=== PATIENT | female | born 1945 | race Caucasian/White ===

== ENCOUNTER 2022-03-09 10:36 | Emergency (ER) | payer MEDICARE, SELFPAY ==
[2022-03-09] VITALS (8 sets, daily range): BP systolic 112–140; BP diastolic 46–76; PULSE 73–91; RESP 14–23; TEMP 36.9–37.3; O2SAT 93–98; BMI 35.5
--- NOTE | 2022-03-09 10:56 | ECG_ITS ---
APPROVED REPORT Exam: Resting ECG HR:104 bpm ECG Measurements Heart Rate 104 AXES UT 186 P 79 QRSd 85 QRS 12 QT 310 T 32 QTc 371 Conclusion SINUS TACHYCARDIA WITH OCCASIONAL VENTRICULAR PREMATURE COMPLEXES WITH FREQUENT SUPRAVENTRICULAR PREMATURE COMPLEXES NONSPECIFIC T-WAVE ABNORMALITY ABNORMAL RHYTHM ECG UNCONFIRMED REPORT Electronically signed by : Lan Patel MD 03/09/2022 20:49:16
--- NOTE | 2022-03-09 11:38 | [facility].EDGENADL ---
Discharge Plan Disposition Patient Disposition: Home, Self-Care Condition: Good Prescriptions Prescriptions: New oseltamivir [Tamiflu] 6 mg/mL suspension for reconstitution 75 mg PO BID 5 Days Qty: 125 0RF cephalexin 250 mg capsule 250 mg PO Q6H 5 Days Qty: 20 0RF No Action metformin 500 mg tablet 1,000 mg PO BID atorvastatin 10 mg tablet 10 mg PO DAILY glimepiride 2 mg tablet 2 mg PO DAILY levothyroxine 100 mcg tablet 100 mcg PO DAILY amlodipine 10 mg tablet 10 mg PO DAILY doxazosin 4 mg tablet 4 mg PO DAILY diclofenac sodium 75 mg tablet,delayed release (DR/EC) 75 mg PO DAILY levocetirizine 5 mg tablet 5 mg PO DAILY ascorbic acid (vitamin C) [Vitamin C] 1,000 mg Tablet 1 g PO DAILY fexofenadine [Alyssa] 180 mg Tablet 180 mg PO DAILY aspirin [Aspir-81] 81 mg Tablet,Delayed Release (Dr/Ec) 81 mg PO DAILY ferrous sulfate 325 mg (65 mg iron) Tablet 325 mg PO DAILY esomeprazole magnesium [Nexium 24HR] 20 mg Capsule,Delayed Release(Dr/Ec) 20 mg PO DAILY cholecalciferol (vitamin D3) [Vitamin D3] 25 mcg (1,000 unit) Capsule 25 mcg PO DAILY Victoza 2-Jose 0.6 mg/0.1 mL (18 mg/3 mL) pen injector 1.2 mg SQ DAILY Centrum Silver Women 8 mg iron-400 mcg-300 mcg Tablet 1 tab PO DAILY Referrals Follow up/Referrals: Ansley Butterfield [Primary Care Provider] - See instructions Activity Restrictions/Add. Instructions Additional Instructions/Restrictions: Rest, drink plenty of fluids. Tylenol or ibuprofen for fever or pain. Tamiflu as prescribed. Cephalexin as prescribed for possible UTI. Urine culture has been performed, results generally take 2 to 3 days. Follow-up the results of this test with your primary care provider within 2 to 3 days. Follow-up with primary care provider if not improving in 4 to 5 days. Clinical Impressions Clinical Impression: Influenza A Instructions Patient Instructions: DI for Influenza -- Adult Discharge ED Provider: French Cisneros Adult HPI General Chief complaint: Weakness Stated complaint: weakness Time Seen by Provider: 03/09/22 11:41 Mode of Arrival: EMS Source of Information: Patient and EMS Limitations: No Limitations Description of Symptoms (Recalled from ER Triage Doc. by RN): per ems pt was lethargic upon arrival to home with a pal sbp 70, glucose reading 212, 500 NS given with pt back to her basline with a bp of 130/60. PT states that she has been feeling tired since yesterday. States a little girl was at her house the other day with the flu History of Present Illness HPI narrative: Brought in by ambulance. Patient states she has not felt well since Thursday, 2 days ago. States that she has a cold. She has a cough and congestion, generalized weakness, poor appetite. She feels like she has had a fever but does not have a thermometer. She had diarrhea in the emergency department, but not prior. No vomiting. Denies shortness of breath. States that this morning she was weaker than normal and therefore ambulance was called. Found to be hypotensive on arrival with resolution after IV fluid bolus. She was exposed to influenza the other day . She has not had an influenza vaccine this year. She has been immunized against COVID. She was exposed to COVID in December. Related Data Home Medications Medication Instructions Recorded Confirmed amlodipine 10 mg tablet 10 mg PO DAILY blood pressure 03/09/22 03/09/22 ascorbic acid (vitamin C) 1,000 mg 1 g PO DAILY supplement 03/09/22 03/09/22 tablet (Vitamin C) aspirin 81 mg tablet,delayed 81 mg PO DAILY heart health 03/09/22 03/09/22 release atorvastatin 10 mg tablet 10 mg PO DAILY Cholesterol 03/09/22 03/09/22 cholecalciferol (vitamin D3) 25 25 mcg PO DAILY Supplement 03/09/22 03/09/22 mcg (1,000 unit) capsule (Vitamin D3) diclofenac sodium 75 mg 75 mg PO DAILY Pain 03/09/22 03/09/22
--- NOTE | 2022-03-09 11:41 | XR_ITS ---
PROCEDURE INFORMATION: Exam: XR Chest Exam date and time: 03/09/2022 12:03 PM Age: 76 years old Clinical indication: Other: Lethargic TECHNIQUE: Imaging protocol: Radiologic exam of the chest. Views: 1 view. COMPARISON: No relevant prior studies available. FINDINGS: Lungs: Mild interstitial prominence, without acute airspace disease. Pleural spaces: No pleural effusion. Heart/Mediastinum: No cardiomegaly. Bones/joints: Degenerative change. IMPRESSION: No acute airspace or pleural disease.
[2022-03-09 11:46] LABS: Coronavirus 19, PCR Not Detected (NotDetected); Influenza B, PCR Not Detected (NotDetected)
[2022-03-09 11:48] LABS: Basophils # 0.2 K/mm3 (0-0.2); Basophils % 2.9 % (0.1-2.0); Eosinophils % 0.1 % (0.1-12.0); Hematocrit 34.8 % (37.0-47.0); Lymphocytes # 0.7 K/mm3 (0.7-4.5); Lymphocytes % 12.7 % (10-50); Mean Corpuscular HGB Conc 31.6 g/dL (31.8-35.4); Mean Corpuscular Hemoglobin 28.8 pg (27.0-31.2); Mean Corpuscular Volume 91.2 fl (81-99); Mean Platelet Volume 8.6 fl (7.4-10.4); Monocytes # 0.5 K/mm3 (0.1-1.0); Monocytes % 9.3 % (1.7-9.3); Neutrophils # 4.2 K/mm3 (1.8-7.8); Platelet Count 211 K/mm3 (142-424); Red Blood Count 3.81 M/mm3 (4.20-5.40); White Blood Count 5.6 K/mm3 (4.8-10.8)
[2022-03-09 11:49] LABS: Chloride 96 mmol/L (98-107); Potassium 3.8 mmoL/L (3.5-5.1); Sodium 132 mmol/L (136-145)
[2022-03-09 11:52] LABS: Alanine Aminotransferase 127 U/L (12-78); Albumin Level 3.5 g/dl (3.5-5.0); Albumin/Globulin Ratio 1.5 (1.1-1.8); Alkaline Phosphatase 92 U/L (38-126); Anion Gap 11.8 mEq/L (5-15); Aspartate Amino Transferase 96 U/L (14-36); Bilirubin,Total 0.5 mg/dl (0.2-1.3); Blood Urea Nitrogen 13 mg/dl (7-17); Calcium 8.1 mg/dl (8.4-10.2); Carbon Dioxide 28 mmol/L (22.0-30.0); Creatinine Clearance Estimated 53 mL/min (50-200); Estimated Glomerular Filt Rate 44 ml/min (>60); GFR (African American) 53 ML/MIN (>60); Globulin 2.4 g/dL (1.3-3.2); Glucose 270 mg/dl (74-100); Total Protein,Serum 5.9 g/dl (6.3-8.2)
[2022-03-09 12:06] LABS: Microscopic, Urine URINE MICROSCOPIC (MICROSCOPIC)
[2022-03-09 12:19] LABS: Lactic Acid 1.9 mmol/L (0.7-2.1)
[2022-03-09 12:20] LABS: Bilirubin,Urine Negative (Negative); Blood, Urine TRACE-I (Negative); Color,Urine YELLOW (Yellow); Glucose,Urine (UA) Negative (Negative); Ketones,Urine TRACE (Negative); Leukocyte Esterase,Urine 1+ (Negative); Nitrate,Urine POSITIVE (Negative); PH,Urine 5.5 (5.0-8.5); Protein,Urine 2+ (Negative); Specific Gravity, Urine >= 1.030 (1.005-1.030); Urobilinogen,Urine 0.2 EU/dl (0.2)
[2022-03-09 12:21] LABS: Appearance,Urine Slightly Cloudy (Clear)
[2022-03-09 12:41] LABS: Influenza A, PCR Detected (NotDetected)
[2022-03-09 12:49] LABS: Bacteria,Urine 3+ /lpf; RBC,Urine Occasional #/hpf (0-3); WBC,Urine Occasional #/hpf (0-3)
== END 2022-03-09 14:28 | disposition home or self-care (01) ==
PROVIDERS: Emergency Provider Emergency Medicine; PCP Family Medicine
DX: J10.1 Influenza due to other identified influenza virus with other respiratory manifestations (principal); R06.02 Shortness of breath; R00.0 Tachycardia, unspecified; R00.2 Palpitations; Z20.822 Contact with and (suspected) exposure to COVID-19; R05.9 Cough, unspecified; R53.81 Other malaise; R19.7 Diarrhea, unspecified; R09.81 Nasal congestion; R53.1 Weakness; Z79.82 Long term (current) use of aspirin; Z79.84 Long term (current) use of oral hypoglycemic drugs; Z79.899 Other long term (current) drug therapy; Z88.8 Allergy status to other drugs, medicaments and biological substances
CPT/HCPCS: 71045; 80053; 81001; 83605; 85025; 87040; 87077; 87086; 87088; 87186; 93005; 99284; C9803; U0003; U0005